=== PATIENT | female | born 1990 | race Asian ===

== ENCOUNTER 2022-05-12 02:15 | Inpatient (IN) ==
[2022-05-12] MEDS ORDERED: LIDOCAINE 1% LOCAL 20 ML VIAL INFIL PRN (03:13)
[2022-05-12] MEDS ORDERED: OXYTOCIN 30 UNITS/500 ML BAG IV PRN ×3 (03:13→21:16)
[2022-05-12] MEDS: LACTATED RINGER'S 1,000 ML IV PRN ×3 (03:24→12:52)
[2022-05-12] MEDS ORDERED: fentaNYL citrate 100 MCG/2 ML VIAL ONE (03:30)
[2022-05-12] MEDS ORDERED: SODIUM CHLORIDE 0.9% INJ 10 ML VIAL ONE (03:30)
[2022-05-12] MEDS ORDERED: ePHEDrine sulfate 50 MG/ML AMP ONE (03:30)
[2022-05-12] MEDS ORDERED: LIDOCAINE 2%/EPINEPHRINE 1:200,000 20 ML SDV ONE (03:31)
[2022-05-12] MEDS ORDERED: BUPIVACAINE 0.25% 30 ML VIAL ONE ×2 (03:31→12:02)
[2022-05-12] MEDS ORDERED: fentaNYL 2MCG/ML ROPIVACAINE 1.25MG/ML 100 ML BAG EPI ONE (03:31)
[2022-05-12 04:02] LABS: Hematocrit (blood only) 32.4 % (37.0-47.0); Hemoglobin 10.6 g/dl (12.0-16.0); Mean Corpuscular Hemoglobin 26.1 pg (25.0-34.0); Mean Corpuscular Hgb Conc 32.7 g/dL (32.0-36.0); Mean Corpuscular Volume 79.8 fL (80.0-100.0); Mean Platelet Volume 10.9 fL (9.4-12.4); Platelet Count 200 K/uL (130-400); RDW Coefficient of Variation 14.9 % (11.5-14.5); RDW Standard Deviation 43.3 fL (36.4-46.3); Red Blood Count 4.06 M/uL (4.20-5.40); White Blood Count 10.32 K/ul (4.8-10.8)
--- NOTE | 2022-05-12 04:10 | Anesthesiology Consultation ---
Date of Service May 12, 2022 Assessment & Plan (1) Encounter for pre-operative examination: Chart Review Chart Review: Acceptable Risk for Labor Epidural History Height/Weight Height: 5 ft 2 in Weight: 64.982 kg Allergies Allergy/AdvReac Type Severity Reaction Status Date / Time No Known Allergies Allergy Verified 05/12/22 03:33 Medications Home Medications Medication Instructions Recorded Confirmed Last Taken prenat.vits,rubens,mbh-izle-yiqpb 1 tab PO DAILY 10/03/21 05/12/22 05/10/22 acetone (urine) test (Ketone Urine #50 ea 03/09/22 05/12/22 Unknown Test strips) blood sugar diagnostic (OneTouch #150 ea 03/09/22 05/12/22 Unknown Verio test strips) blood-glucose meter (OneTouch #1 ea 03/09/22 05/12/22 Unknown Verio Reflect Meter) lancets 33 gauge (OneTouch Delica #150 ea 03/09/22 05/12/22 Unknown Lancets) Active Medications Generic Name Dose Route Start Last Admin Trade Name Freq PRN Reason Stop Dose Admin Lactated Ringer's 1,000 mls @ 125 mls/hr 05/12/22 03:13 05/12/22 03:24 Lr IV 05/14/22 03:12 999 mls/hr .Q8H PRN Administration L&D Protocol Protocol Past Medical History Medical History No significant past medical history Past Surgical History Surgical History H/O ovarian cystectomy Excision of Dermoid in [place] in 2019 Social History Smoking Status: Never smoker Hx Alcohol Use: No Hx Substance Use: No Physical Exam Vital Signs Last Vital Signs Temp 37.0 C 05/12/22 02:35 Pulse 107 H 05/12/22 02:51 Resp 18 05/12/22 02:35 BP 104/66 05/12/22 02:51 Testing Laboratory Results 05/12/22 03:39
[2022-05-12] MEDS ORDERED: NALOXONE HCL 0.4 MG/1 ML VIAL/CARP IV PRN (04:46)
[2022-05-12] MEDS ORDERED: ePHEDrine sulfate 50 MG/ML AMP IV PRN (04:46)
[2022-05-12] MEDS ORDERED: ONDANSETRON INJ 2 MG/ML 2 ML VIAL IV PRN (04:46)
[2022-05-12] MEDS ORDERED: NALOXONE HCL 1 MG in SODIUM CHLORIDE 0.9% 1000ML 1,000 ML IV PRN (04:46)
--- NOTE | 2022-05-12 07:04 | History & Physical Report ---
Date of Service May 12, 2022 Assessment & Plan (1) Supervision of normal intrauterine in primigravida: Plan: Admit to L&D, EFM/toco, labs. Glucose check hourly. Comfortable now after epidural. AROM clear fluid. Agreeable for pitocin if ctx do not increase. Admission and Anticipated Discharge Date Admission Date: May 12, 2022 History of Present Illness Chief Complaint: contractions Primary Care Provider: NO PCP 31yo @ 40 03/25, presented with contractions. No ROM or vaginal bleeding. + movement. GDMA1. Allergies Allergy/AdvReac Type Severity Reaction Status Date / Time No Known Allergies Allergy Verified 05/12/22 03:33 Home Medications Medication Instructions Recorded Confirmed Type prenat.vits,rubens,ksw-iipl-eaubm 1 tab PO DAILY 10/03/21 05/12/22 History acetone (urine) test (Ketone Urine #50 ea 03/09/22 05/12/22 Rx Test strips) blood sugar diagnostic (OneTouch #150 ea 03/09/22 05/12/22 Rx Verio test strips) blood-glucose meter (OneTouch #1 ea 03/09/22 05/12/22 Rx Verio Reflect Meter) lancets 33 gauge (OneTouch Delica #150 ea 03/09/22 05/12/22 Rx Lancets) Patient History Medical History No significant past medical history Surgical History H/O ovarian cystectomy Excision of Dermoid in [place] in 2019 Social History (Updated 10/03/21 @ 15:26 by Brianna Loyd) Smoking Status: Never smoker Second Hand Exposure: No; Hx Alcohol Use: No Hx Substance Use: No Preferred Language: Icelandic Communication Ability: Effective Manager Installation Required: No Beliefs That Will Affect Care: None marital status: Single marital status details: Angely [phone] Current Living Situation: Spouse and Significant Other Current Living Situation Comment: lvies wtih fob no pets. current occupational status: employed current occupation: Research ass. @ [employer] Feels Safe at Home: Yes Assistive Devices: None Review of Systems All systems reviewed & are unremarkable except as noted in HPI & below Physical Exam Physical Exam: FHT Cat 1 [place] Q 5 SVE 7/100/0, bulging membranes Constitutional: WD/WN, vitals as above Respiratory: normal respiratory effort, lungs clear to auscultation no respiratory distress Cardiovascular: Rate/Rhythm: regular rate and regular rhythm Gastrointestinal (Abdomen): Inspection/Auscultation: abdomen normal to inspection Percussion/Palpation: abdomen soft; abdomen nontender Gravid. No s/s chorio or abruption. Skin: no rashes, warm and dry Psychiatric: A+Ox3, euthymic affect Results & Data ([facility]) Vital Signs (Past 12 Hours) Vital Signs Temp Pulse Resp BP Pulse Ox 05/12/22 02:35 37.0 C 18 05/12/22 06:10 73 94 05/12/22 06:08 76 102/57 L 05/12/22 06:06 81 96 05/12/22 06:03 94 05/12/22 06:03 71 05/12/22 06:03 81 95/53 L 05/12/22 05:00 18 05/12/22 05:00 18 05/12/22 05:15 16 05/12/22 05:15 16 05/12/22 06:01 86 96 05/12/22 05:59 73 97/55 L 05/12/22 05:58 72 94 05/12/22 05:56 81 96 05/12/22 05:53 72 103/56 L 05/12/22 05:51 71 96 05/12/22 05:48 70 100/55 L 05/12/22 05:46 70 95 05/12/22 05:43 73 99/57 L 05/12/22 05:41 71 96 05/12/22 05:38 77 99/58 L 05/12/22 05:36 75 96 05/12/22 05:33 72 102/59 L 05/12/22 05:31 70 95 05/12/22 05:28 76 102/55 L 05/12/22 05:26 76 95 05/12/22 05:23 78 100/57 L 05/12/22 05:21 76 96 05/12/22 05:18 79 100/59 L 05/12/22 05:16 83 96 05/12/22 05:14 73 102/57 L 05/12/22 05:11 92 H 96 05/12/22 05:09 79 103/55 L 05/12/22 05:06 79 96 05/12/22 05:04 73 105/56 L 05/12/22 05:01 79 96 05/12/22 04:58 84 104/59 L 05/12/22 04:56 82 96 05/12/22 04:52 85 105/56 L 05/12/22 04:51 86 96 05/12/22 04:46 105 H 96 05/12/22 04:47 77 103/57 L 05/12/22 04:45 97 H 16 98/55 L 05/12/22 04:43 85 103/55 L 05/12/22 04:41 79 110/64 97 05/12/22 04:40 90 108/65 05/12/22 04:36 95 H 96 05/12/22 04:31 93 H 97 05/12/22 04:26 98 H 98 05/12/22 04:21 91 H 98 05/12/22 02:51 107 H 104/66 Coding Level of Care Code None Diagnoses Supervision of normal intrauterine in primigravida Z34.00
[2022-05-12] MEDS: fentaNYL 2MCG/ML ROPIVACAINE 1.25MG/ML 100 ML BAG EPI PRN ×2 (11:37→12:23)
[2022-05-12] MEDS ORDERED: NURSING L&D Epidural Breakthrough Pain Update ONE (11:41)
--- NOTE | 2022-05-12 12:11 | Communication Note ---
Date of Service: May 12, 2022 pt with increasing pain. rating 7-8/10. bilateral abdomen. low. vss. bolused a total of 8ml of 0.25% bupivicaine in divided doses. bp stable. pain much improved
[2022-05-12] MEDS ORDERED: DIPHTHERIA/TETANUS/PERTUSSIS 0.5mL SYR/VIAL (Age 7+yrs) IM ONE (21:16)
[2022-05-12] MEDS ORDERED: oxyCODONE/ACETAMINOPHEN 5mg/325mg TAB PO PRN (21:16)
[2022-05-12] MEDS ORDERED: ACETAMINOPHEN 325 MG TAB PO PRN (21:16)
[2022-05-12] MEDS ORDERED: HYDROCORTISONE ACETATE 25 MG SUPP PR PRN (21:16)
[2022-05-12] MEDS ORDERED: BENZOCAINE 20% AER SPR 82.5 GM CAN EXT PRN (21:16)
--- NOTE | 2022-05-12 21:59 | Delivery Summary ---
Vaginal Delivery Summary Date of Service May 12, 2022 Vaginal Delivery Summary and 1st Degree LAC Patient is a 31-year-old G1, P0 female EDC of 05/11/2022 who presented in active labor. She received epidural analgesia and membranes were ruptured for clear fluid. She did require Pitocin augmentation of her contractions. She progressed to full dilation with the urge to push. She pushed effectively over intact perineum for delivery of a viable male infant. After the head was delivered the rest of the delivered easily without maternal effort. The was placed on the mother's abdomen for further attention and drying. He was moving all 4 limbs and crying upon delivery. Cord was clamped and cut after 1 minute. After cord blood was obtained the placenta was expressed intact with a three-vessel cord. bleeding was controlled with dilute Pitocin and fundal massage. A first-degree perineal and right labial lacerations were repaired with 3-0 chromic in the usual fashion. Using sterile technique she was straight cathed for approximately 150 cc of urine. Estimated blood loss was 350 cc. Mother and infant were doing well after delivery. [facility] [place] Charge Delivery Type Details: and 1st Degree LAC
[2022-05-12] MEDS: IBUPROFEN 600 MG TAB PO PRN (22:47)
--- NOTE | 2022-05-13 06:27 | Obstetrical Progress Note ---
Date of Service May 13, 2022 Assessment & Plan (1) care following vaginal delivery: (2) Gestational diabetes: Plan - Overall, feeling well and eating well today - Infant feeding going well without concern - Urinating and passing gas appropriately - Ambulating well in room - Pain controlled w/ Ibuprofen - Hgb 10.6 on 05/12, 8.9 on 05/13 - Vitals stable and wnl - Routine PP care progressing well - Anticipate discharge @ 24-48 hours PP - Recommending f/u outpatient in 6 weeks Admission and Anticipated Discharge Date Admission Date: May 12, 2022 Supervising Physician Co-Signing Physician Notes Resident Physician Supervision Note: I interviewed and examined the patient. Discussed with Dr. Page and agree with findings and plan as documented in the note. Any exceptions or clarifications are listed here: [None] Documented By: Genia Demarco MD, FACOG Subjective Patient is a 31F who is PPD #1 following delivery at 40 1/7. She reports feeling well overall this morning. - Ambulation - well throughout room - Voiding/Francisco - independent voids, no dysuria or pressure - Gas/Stool - passing gas, no bowel movement - Diet - regular, no nausea or emesis - Lochia - diminishing, light amount - Feeding Type - breast feeding - Pain Level - 2/10, controlled with Ibuprofen Review of Systems - Denies fever, chills, sweats - Denies shortness of breath, difficulty breathing, chest pain, palpitations, chest pressure. - Denies breast pain. - Denies dysuria. - Denies headache or changes in vision. Physical Exam Physical Exam: General: Alert, oriented. No acute distress. Cardiac: RRR, normal S1/S2, no murmurs/rubs/gallops. Respiratory: Non-labored, CTAB, no wheezes/rales/rhonchi. Symmetric chest rise. Abdomen: Soft, nontender, nondistended. Bowel sounds present. Uterus: Uterine fundus firm, palpable 2 cm below umbilicus. Lower Extremities: No lower extremity edema or swelling. No deep calf pain. Ricky's negative bilaterally. Results & Data ([facility]) Vital Signs (Past 12 Hours) Vital Signs Temp Pulse Pulse Resp BP BP Pulse Ox 05/13/22 04:54 95/54 L 05/13/22 04:08 100/64 05/13/22 03:45 36.6 C 84 18 90/52 L 98 05/12/22 23:30 36.8 C 98 H 18 118/74 97 05/12/22 22:41 108 H 97/56 L 05/12/22 22:26 112 H 105/57 L 05/12/22 22:11 103 H 108/56 L 05/12/22 21:56 116 H 119/58 L 05/12/22 21:41 112 H 139/56 L 05/12/22 21:27 91 H 107/64 05/12/22 20:54 95 H 107/56 L 05/12/22 20:41 96 H 107/53 L 05/12/22 20:29 115 H 83 L 05/12/22 20:27 123 H 110/62 05/12/22 20:24 132 H 74 L 05/12/22 20:19 112 H 100 05/12/22 20:16 116 H 82 L 05/12/22 20:14 119 H 89 L 05/12/22 20:09 102 H 95 05/12/22 20:08 120 H 89 L 05/12/22 20:03 101 H 93 05/12/22 19:58 108 H 117/66 93 05/12/22 19:53 106 H 97 05/12/22 19:47 77 L 05/12/22 19:47 100 H 05/12/22 19:47 114 H 76 L 05/12/22 19:42 93 05/12/22 19:42 106 H 05/12/22 19:42 99 H 111/60 05/12/22 19:40 105 H 85 L 05/12/22 19:37 109 H 95 05/12/22 19:00 20 05/12/22 19:00 37.5 C 20 05/12/22 19:32 105 H 96 05/12/22 19:27 100 H 110/62 05/12/22 19:26 104 H 96 05/12/22 19:21 110 H 80 L 05/12/22 19:18 93 H 87 L 05/12/22 19:16 119 H 99 05/12/22 19:11 97 05/12/22 19:11 101 H 05/12/22 19:11 96 H 108/62 05/12/22 19:00 20 05/12/22 19:00 20 05/12/22 19:06 103 H 97 05/12/22 19:01 101 H 97 05/12/22 18:57 120 H 110/63 05/12/22 18:56 132 H 96 05/12/22 18:51 118 H 94 05/12/22 18:50 116 H 86 L 05/12/22 18:45 20 05/12/22 18:45 20 05/12/22 18:46 114 H 96 05/12/22 18:43 112 H 87 L 05/12/22 18:41 124 H 96 05/12/22 18:42 113 H 111/61 05/12/22 18:36 124 H 89 L 05/12/22 18:30 20 05/12/22 18:30 20 05/12/22 18:31 118 H 97 05/12/22 18:26 114 H 116/68 97 O2 Del Method 05/13/22 04:54 05/13/22 04:08 05/13/22 03:45 Room Air 05/12/22 23:30 Room Air 05/12/22 22:41 05/12/22 22:26 05/12/22 22:11 05/12/22 21:56 05/12/22 21:41 05/12/22 21:27 05/12/22 20:54 05/12/22 20:41 05/12/22 20:29 05/12/22 20:27 05/12/22 20:24 05/12/22 20:19 05/12/22 20:16 05/12/22 20:14 05/12/22 20:09 05/12/22 20:08 05/12/22 20:03 05/12/22 19:58 05/12/22 19:53 05/12/22 19:47 05/12/22 19:47 05/12/22 19:47 05/12/22 19:42 05/12/22 19:42 05/12/22 19:42 05/12/22 19:40 05/12/22 19:37 05/12/22 19:00 05/12/22 19:00 05/12/22 19:32 05/12/22 19:27 05/12/22 19:26 05/12/22 19:21 05/12/22 19:18 05/12/22 19:16 05/12/22 19:11 05/12/22 19:11 05/12/22 19:11 05/12/22 19:00 05/12/22 19:00 05/12/22 19:06 05/12/22 19:01 05/12/22 18:57 05/12/22 18:56 05/12/22 18:51 05/12/22 18:50 05/12/22 18:45 05/12/22 18:45 05/12/22 18:46 05/12/22 18:43 05/12/22 18:41 05/12/22 18:42 05/12/22 18:36 05/12/22 18:30 05/12/22 18:30 05/12/22 18:31 05/12/22 18:26 Resident Activity Tracking Resident Involvement: Resident Care Provided Care Provided: OB Delivery
[2022-05-13 07:03] LABS: Hematocrit (blood only) 26.2 % (37.0-47.0); Hemoglobin 8.9 g/dl (12.0-16.0); Mean Corpuscular Hemoglobin 26.9 pg (25.0-34.0); Mean Corpuscular Volume 79.2 fL (80.0-100.0); Mean Platelet Volume 11.2 fL (9.4-12.4); Platelet Count 169 K/uL (130-400); RDW Coefficient of Variation 15.3 % (11.5-14.5); RDW Standard Deviation 43.8 fL (36.4-46.3); Red Blood Count 3.31 M/uL (4.20-5.40); White Blood Count 17.34 K/ul (4.8-10.8)
[2022-05-13] MEDS: DOCUSATE SODIUM 100 MG CAP PO SCH ×2 (08:37→20:56)
[2022-05-13] MEDS: IBUPROFEN 600 MG TAB PO PRN ×3 (08:37→20:56)
[2022-05-13] MEDS: PRENATAL VITAMIN 1 TAB PO SCH (08:37)
[2022-05-13] MEDS ORDERED: bisacodyL 5 MG TABEC PO SCH (20:00)
[2022-05-14] MEDS ORDERED: bisacodyL 10 MG SUPP PR PRN
[2022-05-14 06:36] LABS: Hematocrit (blood only) 27.4 % (37.0-47.0); Hemoglobin 8.8 g/dl (12.0-16.0)
--- NOTE | 2022-05-14 08:12 | Obstetrical Progress Note ---
Date of Service May 14, 2022 Assessment & Plan (1) care following vaginal delivery: ppd 2 home (2) Gestational diabetes: Plan - Overall, feeling well and eating well today - feeding going well without concern - Urinating and passing gas appropriately - Ambulating well in room - Pain controlled w/ Ibuprofen - Hgb 10.6 on 05/12, 8.9 on 05/13 - Vitals stable and wnl - Routine PP care progressing well - Anticipate discharge @ 24-48 hours PP - Recommending f/u outpatient in 6 weeks Subjective Ambulation: ambulating normally Voiding: no voiding problems Passing Gas:: Yes Diet Tolerance:: regular diet Constitutional: + as per Subjective / HPI Physical Exam Constitutional WD/WN, vitals as above well developed and well nourished Respiratory normal respiratory effort, lungs clear to auscultation normal respiratory effort Cardiovascular RRR, no murmur, no edema Gastrointestinal (Abdomen) normal bowel sounds, soft, nontender, no hepatosplenomegaly Results & Data ([facility]) Vital Signs (Past 12 Hours) Vital Signs Temp Pulse Resp BP Pulse Ox O2 Del Method 05/13/22 23:20 97.9 F 81 16 103/68 99 Room Air
[2022-05-14] MEDS: PRENATAL VITAMIN 1 TAB PO SCH (09:25)
[2022-05-14] MEDS: DOCUSATE SODIUM 100 MG CAP PO SCH (09:25)
[2022-05-14] MEDS: IBUPROFEN 600 MG TAB PO PRN (09:26)
== END 2022-05-14 15:20 | disposition home or self-care (01) | DRG 807 ==
LOC: OPB 02:15 → 4S1 02:25 → 4E2 23:00